=== PATIENT | female | born 1990 | race Caucasian/White ===

== ENCOUNTER → 2016-11-21 | Outpatient (CLI) | payer OTHER ==
--- NOTE | 2016-11-21 16:01 | US ---
EXAMINATION: Transvaginal pelvic ultrasound HISTORY: Hemorrhage, . Beta hCG 200. COMPARISON: None TECHNIQUE: Grayscale, color Doppler, and spectral Doppler images obtained transvaginally. FINDINGS: The uterus appears normal in size, contour, and echogenicity without a focal uterine mass. Endometrial stripe thickness is 3 mm. There is a moderate amount of free pelvic fluid. Small the andrade th in cyst. The left ovary appears normal in size, contour, and echogenicity and demonstrate normal color and sp ectral Doppler flow and containing several follicles. There is an irregular tubular shaped structure adjacent to the right ovary containing echogenic material and no significant internal color Doppler flow. No characteristic ring of fire noted. The adjacent right ovary appears normal in size and iman earance. IMPRESSION: 1. No intrauterine gestational sac identified, however not unexpected given the beta hCG of only 200 . An ectopic is not ruled out at this time. 2. Irregular echogenic tubular structure within the left adnexa, this could represent hemosalpinx or pyosalpinx. 3. Moderate free pelvic fluid.
== END ==
LOC: MW.CHOBGYN 10:21
PROVIDERS: ATTEND Nurse Practitioner Women's Health
DX: O20.9 Hemorrhage in early pregnancy, unspecified (principal); N93.8 Other specified abnormal uterine and vaginal bleeding
CPT/HCPCS: 36415; 76817; 76817-26; 83001; 83002; 84144; 84146; 84443; 84702; 84703; 85025

== ENCOUNTER → 2016-11-24 | Outpatient (CLI) | payer OTHER | LOC: MW.CHOBGYN 08:12 | PROVIDERS: ATTEND Nurse Practitioner Women's Health | DX: O20.0 Threatened abortion (principal) | CPT/HCPCS: 36415; 84702 ==

== ENCOUNTER 2016-11-27 11:18 | Emergency (ER) | payer OTHER ==
[~2016-11-27 11:18] MED LIST: METHOTREXATE 250 MG/10 ML IM SCH
--- NOTE | 2016-11-27 12:39 | US ---
EXAMINATION: Transvaginal and transabdominal pelvic ultrasound HISTORY: Cramping COMPARISON: 11/21/2016 TECHNIQUE: Grayscale, color Doppler, spectral Doppler images obtained transvaginally and transabdomi shira. FINDINGS: The uterus is normal in size, contour, and echogenicity without a focal uterine mass. Ther e is a small bone cyst. The endometrial stripe thickness is normal. No intrauterine gestational sac identified. Again noted is a prominent heterogeneous right ovary overall measuring 5.3 x 3.4 x 5.6 cm. This appe ars similar to the previous ultrasound demonstrating adequate internal color and spectral Doppler fl ow. The left ovary measures 3.0 x 4 x 4.5 cm demonstrating several small follicles and a dominant fo llicle measuring up to 2.2 cm. IMPRESSION: 1. Heterogeneously enlarged right ovary. Similar in appearance to the previous ultrasound. 2. Again no gestational sac is identified. Correlate with beta hCG. An ectopic is not rule d out. 3. Free pelvic fluid, however appears decreased from the prior ultrasound.
--- NOTE | 2016-11-27 12:51 | EDM.PDOC ---
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 Patient has been being monitored by her women's health practitioner who indicated she should come in for further evaluation secondary to increased lower abdominal pain.] Review of systems: As per history of present illness and below otherwise all systems reviewed and negative. Past medical history: As per history of present illness and as reviewed below otherwise noncontributory. Surgical history: As per history of present illness and as reviewed below otherwise noncontributory. Social history: No reported history of drug or alcohol abuse. Family history: As per history of present illness and as reviewed below otherwise noncontributory. Physical exam: HEENT: Atraumatic, normocephalic, pupils reactive, negative for conjunctival pallor or scleral icterus, mucous membranes moist, throat clear, neck supple, nontender, trachea midline. Lungs: Clear to auscultation, breath sounds equal bilaterally, chest nontender. Heart: S1S2, regular, negative for clicks, rubs, or JVD. Abdomen: Soft, nondistended, diffuse low pelvic pain right greater then left. Negative for masses or hepatosplenomegaly. Negative for costovertebral tenderness. Pelvis: Stable nontender. Genitourinary: Pelvic exam performed with small amount of bleeding noted coming from the OS. Rectal: Deferred. Extremities: Atraumatic, negative for cords or calf pain. Neurovascular unremarkable. Neuro: Awake, alert, oriented. Cranial nerves II through XII unremarkable. Cerebellum unremarkable. Motor and sensory unremarkable throughout. Exam nonfocal. Dr. Phipps consulted and presented to the ER for further evaluation of patient. Instructions given for methotrexate 50 mg per metered square to be dosed by pharmacy. Dr. Phipps discussed with patient risk benefits of monitoring and potential concern of a tubal . Signs and symptoms of increased pain and /or vaginal bleeding discussed with need to return emergently should this continue or worsen anyway. Consulted with pharmacy with standard dose being converted from the BSA with the dose route it down to 75 mg given in 2 injections. Medication being sent down by pharmacy specifically for this patient. Patient has followup appointment with Dr. Phipps at 1 PM on December 02 per Diagnostics: [First trimester bleeding workup] Therapeutics: [Methotrexate 50 mg per meter square] Impression: [Vaginal bleed] Plan: [All up with Dr. Phipps on December 02] Definitive disposition and diagnosis as appropriate pending reevaluation and review of above. Lower Abdomen Pain Score (Numeric/FACES): 6 - Related Data Allergies Allergy/AdvReac Type Severity Reaction Status Date / Time amoxicillin Allergy Rash Verified 11/27/16 11:28 chili Allergy Itching Uncoded 11/27/16 11:28 Home Meds: Home Meds . 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 Social & Family History - Family History Family Medical History: Noncontributory - Tobacco Use Smoking Status *Q: Former Smoker Years of Tobacco use: 12 Packs/Tins Daily: 0.5 Used Tobacco, but Quit: Yes Month Tobacco Last Used: 11/2016 - Caffeine Use Caffeine Use: Reports: Coffee Caffeine Use Comment: 3/4 cup - Alcohol Use Days Per Week of Alcohol Use: 2 Number of Drinks Per Day: 5 Total Drinks Per Week: 10 - Recreational Drug Use Recreational Drug Use: No ED ROS GENERAL - Review of Systems Review Of Systems: See Below (See history of present illness) ED EXAM, GENERAL - Physical Exam Exam: See Below (See history of present illness) Course - Vital Signs Last Recorded V/S: Last Vital Signs Temp 36.8 C 11/27/16 11:31 Pulse 94 11/27/16 13:29 Resp 18 11/27/16 13:29 BP 116/79 11/27/16 13:29 Pulse Ox 100 11/27/16 13:29 - Orders/Labs/Meds Labs: Laboratory Tests 11/27/16 11/27/16 11/27/16 Range/Units 11:33 11:33 11:54 WBC 8.73 (4.0-11.0) K/uL RBC 3.57 L (4.30-5.90) M/uL Hgb 11.6 L (12.0-16.0) g/dL Hct 35.0 L (36.0-46.0) % MCV 98.0 (80.0-98.0) fL MCH 32.5 H (27.0-32.0) pg MCHC 33.1 (31.0-37.0) g/dL RDW Std Deviation 45.3 (28.0-62.0) fl RDW Coeff of Bill 13 (11.0-15.0) % Plt Count 254 (150-400) K/uL MPV 10.10 (7.40-12.00) fL Neut % (Auto) 77.6 (48.0-80.0) % Lymph % (Auto) 13.6 L (16.0-40.0) % [place] % (Auto) 8.2 (0.0-15.0) % Eos % (Auto) 0.5 (0.0-7.0) % Baso % (Auto) 0.1 (0.0-1.5) % Neut # (Auto) 6.8 H (1.4-5.7) K/uL Lymph # (Auto) 1.2 (0.6-2.4) K/uL [place] # (Auto) 0.7 (0.0-0.8) K/uL Eos # (Auto) 0.0 (0.0-0.7) K/uL Baso # (Auto) 0.0 (0.0-0.1) K/uL Nucleated RBC % 0.0 /100WBC Nucleated RBCs # 0 K/uL HCG, Quant mIU/mL Urine Color YELLOW Urine Appearance CLEAR Urine pH 6.5 (5.0-8.0) Ur Specific [place] 1.015 (1.001-1.035) Urine Protein NEGATIVE (NEGATIVE) mg/dL Urine Glucose (UA) NEGATIVE (NEGATIVE) mg/dL Urine Ketones NEGATIVE (NEGATIVE) mg/dL Urine Occult Blood LARGE H (NEGATIVE) Urine Nitrite NEGATIVE (NEGATIVE) Urine Bilirubin NEGATIVE (NEGATIVE) Urine Urobilinogen 0.2 (<2.0) EU/dL Ur Leukocyte Esterase NEGATIVE (NEGATIVE) Urine RBC 7-9 (0-2/HPF) Urine WBC 0-1 (0-5/HPF) Ur Epithelial Cells RARE (NONE-FEW) Urine Bacteria RARE (NEGATIVE) Urine Mucus LIGHT (NONE-MOD) Urine HCG, Qual POSITIVE (NEGATIVE) Blood Type 11/27/16 11/27/16 Range/Units 11:54 11:54 WBC (4.0-11.0) K/uL RBC (4.30-5.90) M/uL Hgb (12.0-16.0) g/dL Hct (36.0-46.0) % MCV (80.0-98.0) fL MCH (27.0-32.0) pg MCHC (31.0-37.0) g/dL RDW Std Deviation (28.0-62.0) fl RDW Coeff of Bill (11.0-15.0) % Plt Count (150-400) K/uL MPV (7.40-12.00) fL Neut % (Auto) (48.0-80.0) % Lymph % (Auto) (16.0-40.0) % [place] % (Auto) (0.0-15.0) % Eos % (Auto) (0.0-7.0) % Baso % (Auto) (0.0-1.5) % Neut # (Auto) (1.4-5.7) K/uL Lymph # (Auto) (0.6-2.4) K/uL [place] # (Auto) (0.0-0.8) K/uL Eos # (Auto) (0.0-0.7) K/uL Baso # (Auto) (0.0-0.1) K/uL Nucleated RBC % /100WBC Nucleated RBCs # K/uL HCG, Quant 154.4 mIU/mL Urine Color Urine Appearance Urine pH (5.0-8.0) Ur Specific [place] (1.001-1.035) Urine Protein (NEGATIVE) mg/dL Urine Glucose (UA) (NEGATIVE) mg/dL Urine Ketones (NEGATIVE) mg/dL Urine Occult Blood (NEGATIVE) Urine Nitrite (NEGATIVE) Urine Bilirubin (NEGATIVE) Urine Urobilinogen (<2.0) EU/dL Ur Leukocyte Esterase (NEGATIVE) Urine RBC (0-2/HPF) Urine WBC (0-5/HPF) Ur Epithelial Cells (NONE-FEW) Urine Bacteria (NEGATIVE) Urine Mucus (NONE-MOD) Urine HCG, Qual (NEGATIVE) Blood Type A POSITIVE Departure - Departure Time of Disposition: 14:12 Disposition: Home, Self-Care 01 Condition: good Clinical Impression: Vaginal bleeding - Discharge Information Forms: ED Department Discharge Additional Instructions: The following information is given to patients seen in the emergency department who are being discharged to home. This information is to outline your options for follow-up care. We provide all patients seen in our emergency department with a follow-up referral. The need for follow-up, as well as the timing and circumstances, are variable depending upon the specifics of your emergency department visit. If you don't have a primary care physician on staff, we will provide you with a referral. We always advise you to contact your personal physician following an emergency department visit to inform them of the circumstance of the visit and for follow-up with them and/or the need for any referrals to a consulting specialist. The emergency department will also refer you to a specialist when appropriate. This referral assures that you have the opportunity for follow-up care with a specialist. All of these measure are taken in an effort to provide you with optimal care, which includes your follow-up. Under all circumstances we always encourage you to contact your private physician who remains a resource for coordinating your care. When calling for follow-up care, please make the office aware that this follow-up is from your recent emergency room visit. If for any reason you are refused follow-up, please contact the [facility] Emergency Department at and asked to speak to the emergency department charge nurse. Followup with Dr. Phipps on December 02 Return to ER as needed as discussed
[2016-11-27 14:21] VITALS: BP 120/68
[2016-11-27] MEDS ORDERED: Methotrexate PF 50 MG/2 ML SDV IM ONE (14:38)
--- NOTE | 2016-11-28 02:43 | CONS ---
DATE OF CONSULTATION: DATE OF : 1990 PRIMARY CARE PHYSICIAN: None PCP Ms. Parkinson is a 26-year-old patient, nulliparous. She was originally seen by [facility] CATHERINE RICHARDS /[phone]
== END 2016-11-27 15:08 | disposition home or self-care (01) ==
LOC: MW.ED 11:18
DX: O46.91 Antepartum hemorrhage, unspecified, first trimester (principal); R10.2 Pelvic and perineal pain; Z3A.01 Less than 8 weeks gestation of pregnancy; Z88.0 Allergy status to penicillin; Z87.891 Personal history of nicotine dependence
CPT/HCPCS: 36415; 76801; 81001; 81025; 84702; 85025; 86900; 86901; 96372; 99283; J9260

== ENCOUNTER 2016-11-28 17:07 | Day surgery (SDC) | payer OTHER ==
[2016-11-28] MEDS ORDERED: Ondansetron 4 MG/2 ML SDV IVPUSH ONE (17:25)
[2016-11-28] MEDS ORDERED: HYDROmorphone 1 MG/ML Syringe IVPUSH ONE (17:25)
[2016-11-28] MEDS ORDERED: Sodium Chloride 0.9% 1,000 ML IV ONE (17:25)
--- NOTE | 2016-11-28 17:37 | EDM.PDOC ---
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 Past medical history: As per history of present illness and as reviewed below otherwise noncontributory. Surgical history: As per history of present illness and as reviewed below otherwise noncontributory. Social history: No reported history of drug or alcohol abuse. Family history: As per history of present illness and as reviewed below otherwise noncontributory. Physical exam: HEENT: Atraumatic, normocephalic, pupils reactive, negative for conjunctival pallor or scleral icterus, mucous membranes moist, throat clear, neck supple, nontender, trachea midline. Lungs: Clear to auscultation, breath sounds equal bilaterally, chest nontender. Heart: S1S2, regular, negative for clicks, rubs, or JVD. Abdomen: Rigid tender with rebound and guarding. Negative for masses or hepatosplenomegaly. Negative for costovertebral tenderness. Pelvis: Stable nontender. Genitourinary: Deferred. Rectal: Deferred. Extremities: Atraumatic, negative for cords or calf pain. Neurovascular unremarkable. Neuro: Awake, alert, oriented. Cranial nerves II through XII unremarkable. Cerebellum unremarkable. Motor and sensory unremarkable throughout. Exam nonfocal. Diagnostics: CBC CMP quantitative data PT INR type and screen Therapeutics: IV x2 normal saline 1 L bolus Dilaudid 1 mg IV Zofran 4 mg IV Impression: #1 acute abdominal pain with history of present tubal Definitive disposition and diagnosis as appropriate pending reevaluation and review of above. - Related Data Allergies Allergy/AdvReac Type Severity Reaction Status Date / Time amoxicillin Allergy Rash Verified 11/27/16 11:28 chili Allergy Itching Uncoded 11/27/16 11:28 Home Meds: Home Meds . 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 ED EXAM, GENERAL - Physical Exam Exam: See Below (See dictation) Course - Orders/Labs/Meds Orders: Active Orders 24 hr Category Date Time Status TYPE AND SCREEN [BBK] Stat Lab 11/28/16 15:20 Received Sodium Chloride 0.9% [Normal Saline] 1,000 ml Med 11/28/16 17:25 Active IV .Bolus Medication Orders Sodium Chloride (Normal Saline) 1,000 mls @ 999 mls/hr IV .Bolus ONE Stop: 11/28/16 18:25 Last Admin: 11/28/16 17:39 Dose: 999 mls/hr Labs: Laboratory Tests 11/28/16 11/28/16 11/28/16 Range/Units 15:20 15:20 15:20 WBC 9.65 (4.0-11.0) K/uL RBC 3.61 L (4.30-5.90) M/uL Hgb 11.8 L (12.0-16.0) g/dL Hct 35.5 L (36.0-46.0) % MCV 98.3 H (80.0-98.0) fL MCH 32.7 H (27.0-32.0) pg MCHC 33.2 (31.0-37.0) g/dL RDW Std Deviation 44.8 (28.0-62.0) fl RDW Coeff of Bill 13 (11.0-15.0) % Plt Count 291 (150-400) K/uL MPV 10.40 (7.40-12.00) fL Neut % (Auto) 67.9 (48.0-80.0) % Lymph % (Auto) 22.1 (16.0-40.0) % [place] % (Auto) 9.1 (0.0-15.0) % Eos % (Auto) 0.7 (0.0-7.0) % Baso % (Auto) 0.2 (0.0-1.5) % Neut # (Auto) 6.6 H (1.4-5.7) K/uL Lymph # (Auto) 2.1 (0.6-2.4) K/uL [place] # (Auto) 0.9 H (0.0-0.8) K/uL Eos # (Auto) 0.1 (0.0-0.7) K/uL Baso # (Auto) 0.0 (0.0-0.1) K/uL Nucleated RBC % 0.0 /100WBC Nucleated RBCs # 0 K/uL Sodium 140 (136-146) mmol/L Potassium 3.8 (3.5-5.1) mmol/L Chloride 105 (98-110) mmol/L Carbon Dioxide 23 (21-31) mmol/L BUN 15 (6.0-23.0) mg/dL Creatinine 0.8 (0.6-1.5) mg/dL Est Cr Clr Drug Dosing TNP Estimated GFR (MDRD) > 60.0 ml/min Glucose 97 (60-110) mg/dL Calcium 9.9 (8.8-10.8) mg/dL Total Bilirubin 0.5 (0.1-1.5) mg/dL AST 16 (5-40) IU/L ALT 14 (8-54) IU/L Alkaline Phosphatase 76 (40-150) Total Protein 8.7 H (6.0-8.0) g/dL Albumin 5.1 H (3.5-5.0) g/dL Globulin 3.6 H (2.0-3.5) g/dL Albumin/Globulin Ratio 1.4 (1.3-2.8) HCG, Quant 195.7 mIU/mL Meds: Medications Generic Name Dose Route Start Last Admin Trade Name Freq PRN Reason Stop Dose Admin Sodium Chloride 1,000 mls @ 999 mls/hr 11/28/16 17:25 11/28/16 17:39 Normal Saline IV 11/28/16 18:25 999 mls/hr .Bolus ONE Administration Discontinued Medications Generic Name Dose Route Start Last Admin Trade Name Freq PRN Reason Stop Dose Admin Hydromorphone HCl 1 mg 11/28/16 17:25 11/28/16 17:39 Dilaudid IVPUSH 11/28/16 17:26 1 mg ONETIME ONE Administration Ondansetron HCl 4 mg 11/28/16 17:25 11/28/16 17:40 Zofran IVPUSH 11/28/16 17:26 4 mg ONETIME ONE Administration Departure - Departure Time of Disposition: 18:17 Disposition: DC/Tfer to Other 70 Condition: serious Clinical Impression: Abdominal pain, Tubal ectopic - Discharge Information Referrals: PCP,None [Primary Care Provider] - Forms: ED Department Discharge - My Orders Last 24 Hours: My Active Orders 11/28/16 15:20 TYPE AND SCREEN [BBK] Stat 11/28/16 17:25 Sodium Chloride 0.9% [Normal Saline] 1,000 ml IV .Bolus - Assessment/Plan Last 24 Hours: My Active Orders 11/28/16 15:20 TYPE AND SCREEN [BBK] Stat 11/28/16 17:25 Sodium Chloride 0.9% [Normal Saline] 1,000 ml IV .Bolus
[2016-11-28 17:44] LABS: CHLORIDE,CL 105 mmol/L (98-110); SODIUM,NA 140 mmol/L (136-146)
[2016-11-28] MEDS ORDERED: Ondansetron 4 MG/2 ML SDV ONE (18:21)
[2016-11-28] MEDS ORDERED: fentaNYL 250 MCG/5 ML SDV ONE (18:21)
[2016-11-28] MEDS ORDERED: HYDROmorphone 2 MG/ML Syringe ONE (18:21)
[2016-11-28] MEDS ORDERED: Succinylcholine/Normal Saline 200 MG/10 ML Syringe ONE (18:21)
[2016-11-28] MEDS ORDERED: Dexamethasone 4 MG/ML 5 ML MDV ONE (18:21)
[2016-11-28] MEDS ORDERED: Midazolam 1 MG/ML 2 ML SDV ONE (18:21)
[2016-11-28] MEDS ORDERED: Propofol 200 MG/20 ML SDV ONE (18:21)
[2016-11-28] MEDS ORDERED: Rocuronium 10 MG/ML 10 ML Syringe ONE (18:21)
[2016-11-28] MEDS ORDERED: Lidocaine 2% 5 ML SDV ONE (18:23)
--- NOTE | 2016-11-28 19:08 | PCM.PREANE ---
Preanesthetic Assessment - Anesthesia/Transfusion/Family Hx Anesthesia History: Prior Anesthesia Without Reaction Family History of Anesthesia Reaction: Yes - Review of Systems Other: Reports: None - Physical Assessment NPO Status Date: 11/28/16 NPO Status Time: 16:00 O2 Sat by Pulse Oximetry: 100 Respiratory Rate: 16 Vital Signs: Last Vital Signs Temp 36.6 C 11/28/16 17:10 Pulse 92 11/28/16 17:10 Resp 16 11/28/16 17:10 BP 122/83 11/28/16 17:10 Pulse Ox 100 11/28/16 17:10 Height: 5 ft 4.17 in Weight: 53.977 kg ASA Class: 2E Mental Status: Alert & Oriented x3 Airway Class: Mallampati = 1 Dentition: Reports: Normal Dentition Thyro-Mental Finger Breadths: 3 Mouth Opening Finger Breadths: 3 ROM/Head Extension: Full - Lab Values: Laboratory Last Values WBC 9.65 K/uL (4.0-11.0) 11/28/16 15:20 RBC 3.61 M/uL (4.30-5.90) L 11/28/16 15:20 Hgb 11.8 g/dL (12.0-16.0) L 11/28/16 15:20 Hct 35.5 % (36.0-46.0) L 11/28/16 15:20 MCV 98.3 fL (80.0-98.0) H 11/28/16 15:20 MCH 32.7 pg (27.0-32.0) H 11/28/16 15:20 MCHC 33.2 g/dL (31.0-37.0) 11/28/16 15:20 RDW Std Deviation 44.8 fl (28.0-62.0) 11/28/16 15:20 RDW Coeff of Bill 13 % (11.0-15.0) 11/28/16 15:20 Plt Count 291 K/uL (150-400) 11/28/16 15:20 MPV 10.40 fL (7.40-12.00) 11/28/16 15:20 Neut % (Auto) 67.9 % (48.0-80.0) 11/28/16 15:20 Lymph % (Auto) 22.1 % (16.0-40.0) 11/28/16 15:20 [place] % (Auto) 9.1 % (0.0-15.0) 11/28/16 15:20 Eos % (Auto) 0.7 % (0.0-7.0) 11/28/16 15:20 Baso % (Auto) 0.2 % (0.0-1.5) 11/28/16 15:20 Neut # (Auto) 6.6 K/uL (1.4-5.7) H 11/28/16 15:20 Lymph # (Auto) 2.1 K/uL (0.6-2.4) 11/28/16 15:20 [place] # (Auto) 0.9 K/uL (0.0-0.8) H 11/28/16 15:20 Eos # (Auto) 0.1 K/uL (0.0-0.7) 11/28/16 15:20 Baso # (Auto) 0.0 K/uL (0.0-0.1) 11/28/16 15:20 Nucleated RBC % 0.0 /100WBC 11/28/16 15:20 Nucleated RBCs # 0 K/uL 11/28/16 15:20 Sodium 140 mmol/L (136-146) 11/28/16 15:20 Potassium 3.8 mmol/L (3.5-5.1) 11/28/16 15:20 Chloride 105 mmol/L (98-110) 11/28/16 15:20 Carbon Dioxide 23 mmol/L (21-31) 11/28/16 15:20 BUN 15 mg/dL (6.0-23.0) 11/28/16 15:20 Creatinine 0.8 mg/dL (0.6-1.5) 11/28/16 15:20 Est Cr Clr Drug Dosing TNP 11/28/16 15:20 Estimated GFR (MDRD) > 60.0 ml/min 11/28/16 15:20 Glucose 97 mg/dL (60-110) 11/28/16 15:20 Calcium 9.9 mg/dL (8.8-10.8) 11/28/16 15:20 Total Bilirubin 0.5 mg/dL (0.1-1.5) 11/28/16 15:20 AST 16 IU/L (5-40) 11/28/16 15:20 ALT 14 IU/L (8-54) 11/28/16 15:20 Alkaline Phosphatase 76 (40-150) 11/28/16 15:20 Total Protein 8.7 g/dL (6.0-8.0) H 11/28/16 15:20 Albumin 5.1 g/dL (3.5-5.0) H 11/28/16 15:20 Globulin 3.6 g/dL (2.0-3.5) H 11/28/16 15:20 Albumin/Globulin Ratio 1.4 (1.3-2.8) 11/28/16 15:20 HCG, Quant 195.7 mIU/mL 11/28/16 15:20 - Allergies Allergies/Adverse Reactions: Allergies Allergy/AdvReac Type Severity Reaction Status Date / Time amoxicillin Allergy Rash Verified 11/28/16 18:31 chili Allergy Itching Uncoded 11/28/16 18:31 - Blood Blood Available: Yes Product(s) Available: PRBC - Acknowledgements Anesthesia Type Planned: General Anesthesia (RSI ETT) Pt an Appropriate Candidate for the Planned Anesthesia: Yes Alternatives and Risks of Anesthesia Discussed w Pt/Guardian: Yes Pt/Guardian Understands and Agrees with Anesthesia Plan: Yes 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 [No Known Home Meds] 11/08/14 [History] - CURRENT (IN HOUSE) MEDS Current Meds: Current Medications Discontinued Medications Dexamethasone (Dexamethasone) Confirm Administered Dose 20 mg .ROUTE .STK-MED ONE Stop: 11/28/16 18:22 Fentanyl (Sublimaze) Confirm Administered Dose 250 mcg .ROUTE .STK-MED ONE Stop: 11/28/16 18:22 Hydromorphone HCl (Dilaudid) 1 mg IVPUSH ONETIME ONE Stop: 11/28/16 17:26 Last Admin: 11/28/16 17:39 Dose: 1 mg Hydromorphone HCl (Dilaudid) Confirm Administered Dose 2 mg .ROUTE .STK-MED ONE Stop: 11/28/16 18:22 Sodium Chloride (Normal Saline) 1,000 mls @ 999 mls/hr IV .Bolus ONE Stop: 11/28/16 18:25 Last Admin: 11/28/16 17:39 Dose: 999 mls/hr Lidocaine (Xylocaine-Mpf 2%) Confirm Administered Dose 5 ml .ROUTE .STK-MED ONE Stop: 11/28/16 18:24 Midazolam HCl (Versed 1 Mg/Ml) Confirm Administered Dose 2 mg .ROUTE .STK-MED ONE Stop: 11/28/16 18:22 Ondansetron HCl (Zofran) 4 mg IVPUSH ONETIME ONE Stop: 11/28/16 17:26 Last Admin: 11/28/16 17:40 Dose: 4 mg Ondansetron HCl (Zofran) Confirm Administered Dose 4 mg .ROUTE .STK-MED ONE Stop: 11/28/16 18:22 Propofol (Diprivan 20 Ml) Confirm Administered Dose 200 mg .ROUTE .STK-MED ONE Stop: 11/28/16 18:22 Rocuronium [place] (Zemuron) Confirm Administered Dose 100 mg .ROUTE .STK-MED ONE Stop: 11/28/16 18:22 Succinylcholine Chloride (Succinylcholine In Ns Pf) Confirm Administered Dose 200 mg .ROUTE .STK-MED ONE Stop: 11/28/16 18:22
[2016-11-28] MEDS ORDERED: Neostigmine Methylsulfate 1 MG/ML 5 ML Syringe ONE (19:24)
[2016-11-28] MEDS ORDERED: Octyl 2-Cyanoacrylate 1 Tube ONE (19:44)
[2016-11-28] MEDS ORDERED: Ondansetron 4 MG/2 ML SDV IVPUSH PRN (19:53)
[2016-11-28] MEDS ORDERED: Morphine 2 MG/ML Syringe IVPUSH PRN (19:53)
[2016-11-28] MEDS ORDERED: Morphine 4 MG/ML Syringe IVPUSH PRN (19:53)
[2016-11-28] MEDS ORDERED: Acetaminophen/oxyCODONE 325-5 MG Tab PO PRN ×2 (19:53)
[2016-11-28] MEDS ORDERED: Ketorolac 30 MG/ML SDV IVPUSH ONE (19:53)
[2016-11-28] MEDS ORDERED: Promethazine 25 MG/ML SDV IM PRN (19:53)
[2016-11-28] MEDS ORDERED: Ketorolac 30 MG/ML SDV IVPUSH PRN (19:53)
--- NOTE | 2016-11-28 19:57 | PCM.OPNOTE ---
- General Post-Op/Procedure Note Date of Surgery/Procedure: 11/28/16 Operative Procedure(s): Dignostic Laparascopy Post-Op Diagnosis: Same Anesthesia Technique: General ET tube Primary Surgeon: Dominic Phipps EBL in mLs: 150 Complications: None Condition: Fair
--- NOTE | 2016-11-28 19:58 | PCM.DCSUM1 ---
Discharge Summary - Discharge Data Discharge Date: 11/28/16 Discharge Disposition: Home, Self-Care 01 Condition: Fair - Patient Summary/Data Operative Procedure(s) Performed: Dignostic Laparascopy - Patient Instructions Diet: Usual Diet as Tolerated Activity: As Tolerated Driving: Do Not Drive Showering/Bathing: May Shower Wound/Incision Care: Keep Operative Site/Wound Site Clean and Dry Notify Provider of: Fever, Increased Pain, Swelling and Redness, Nausea and/or Vomiting - Discharge Plan Home Medications: Home Meds . [No Known Home Meds] 11/08/14 [History] Forms: ED Department Discharge Referrals: PCP,None [Primary Care Provider] - - General Info Date of Service: 11/28/16 Functional Status: Reports: pain controlled - Review of Systems General: Reports: No Symptoms HEENT: Reports: no symptoms Pulmonary: Reports: no symptoms Cardiovascular: Reports: No Symptoms Gastrointestinal: Reports: No symptoms Genitourinary: Reports: no symptoms Musculoskeletal: Reports: no symptoms Skin: Reports: no symptoms Neurological: Reports: No Symptoms Psychiatric: Reports: no symptoms - Patient Data Vitals - Most Recent: Last Vital Signs Temp 36.6 C 11/28/16 17:10 Pulse 92 11/28/16 17:10 Resp 16 11/28/16 19:06 BP 122/83 11/28/16 17:10 Pulse Ox 100 11/28/16 19:06 Weight - Most Recent: 53.977 kg Lab Results - Last 24 hrs: Laboratory Results - last 24 hr 11/28/16 11/28/16 11/28/16 Range/Units 15:20 15:20 15:20 WBC 9.65 (4.0-11.0) K/uL RBC 3.61 L (4.30-5.90) M/uL Hgb 11.8 L (12.0-16.0) g/dL Hct 35.5 L (36.0-46.0) % MCV 98.3 H (80.0-98.0) fL MCH 32.7 H (27.0-32.0) pg MCHC 33.2 (31.0-37.0) g/dL RDW Std Deviation 44.8 (28.0-62.0) fl RDW Coeff of Bill 13 (11.0-15.0) % Plt Count 291 (150-400) K/uL MPV 10.40 (7.40-12.00) fL Neut % (Auto) 67.9 (48.0-80.0) % Lymph % (Auto) 22.1 (16.0-40.0) % [place] % (Auto) 9.1 (0.0-15.0) % Eos % (Auto) 0.7 (0.0-7.0) % Baso % (Auto) 0.2 (0.0-1.5) % Neut # (Auto) 6.6 H (1.4-5.7) K/uL Lymph # (Auto) 2.1 (0.6-2.4) K/uL [place] # (Auto) 0.9 H (0.0-0.8) K/uL Eos # (Auto) 0.1 (0.0-0.7) K/uL Baso # (Auto) 0.0 (0.0-0.1) K/uL Nucleated RBC % 0.0 /100WBC Nucleated RBCs # 0 K/uL Sodium 140 (136-146) mmol/L Potassium 3.8 (3.5-5.1) mmol/L Chloride 105 (98-110) mmol/L Carbon Dioxide 23 (21-31) mmol/L BUN 15 (6.0-23.0) mg/dL Creatinine 0.8 (0.6-1.5) mg/dL Est Cr Clr Drug Dosing TNP Estimated GFR (MDRD) > 60.0 ml/min Glucose 97 (60-110) mg/dL Calcium 9.9 (8.8-10.8) mg/dL Total Bilirubin 0.5 (0.1-1.5) mg/dL AST 16 (5-40) IU/L ALT 14 (8-54) IU/L Alkaline Phosphatase 76 (40-150) Total Protein 8.7 H (6.0-8.0) g/dL Albumin 5.1 H (3.5-5.0) g/dL Globulin 3.6 H (2.0-3.5) g/dL Albumin/Globulin Ratio 1.4 (1.3-2.8) HCG, Quant 195.7 mIU/mL Blood Type Antibody Screen 11/28/16 Range/Units 15:20 WBC (4.0-11.0) K/uL RBC (4.30-5.90) M/uL Hgb (12.0-16.0) g/dL Hct (36.0-46.0) % MCV (80.0-98.0) fL MCH (27.0-32.0) pg MCHC (31.0-37.0) g/dL RDW Std Deviation (28.0-62.0) fl RDW Coeff of Bill (11.0-15.0) % Plt Count (150-400) K/uL MPV (7.40-12.00) fL Neut % (Auto) (48.0-80.0) % Lymph % (Auto) (16.0-40.0) % [place] % (Auto) (0.0-15.0) % Eos % (Auto) (0.0-7.0) % Baso % (Auto) (0.0-1.5) % Neut # (Auto) (1.4-5.7) K/uL Lymph # (Auto) (0.6-2.4) K/uL [place] # (Auto) (0.0-0.8) K/uL Eos # (Auto) (0.0-0.7) K/uL Baso # (Auto) (0.0-0.1) K/uL Nucleated RBC % /100WBC Nucleated RBCs # K/uL Sodium (136-146) mmol/L Potassium (3.5-5.1) mmol/L Chloride (98-110) mmol/L Carbon Dioxide (21-31) mmol/L BUN (6.0-23.0) mg/dL Creatinine (0.6-1.5) mg/dL Est Cr Clr Drug Dosing Estimated GFR (MDRD) ml/min Glucose (60-110) mg/dL Calcium (8.8-10.8) mg/dL Total Bilirubin (0.1-1.5) mg/dL AST (5-40) IU/L ALT (8-54) IU/L Alkaline Phosphatase (40-150) Total Protein (6.0-8.0) g/dL Albumin (3.5-5.0) g/dL Globulin (2.0-3.5) g/dL Albumin/Globulin Ratio (1.3-2.8) HCG, Quant mIU/mL Blood Type A POSITIVE Antibody Screen NEGATIVE Med Orders - Current: Current Medications Ketorolac Tromethamine (Toradol) 30 mg IVPUSH ONETIME ONE Stop: 11/28/16 19:54 Ketorolac Tromethamine (Toradol) 30 mg IVPUSH Q6H PRN PRN Reason: Pain (severe 7-10) Stop: 12/03/16 19:53 Morphine Sulfate (Morphine) 2 mg IVPUSH Q2H PRN PRN Reason: Pain (severe 7-10) Morphine Sulfate (Morphine) 4 mg IVPUSH Q2H PRN PRN Reason: Pain (severe 7-10) Ondansetron HCl (Zofran) 4 mg IVPUSH Q6H PRN PRN Reason: Nausea/Vomiting Oxycodone/Acetaminophen (Percocet 325-5 Mg) 1 tab PO Q4H PRN PRN Reason: Pain (moderate 4-6) Oxycodone/Acetaminophen (Percocet 325-5 Mg) 2 tab PO Q4H PRN PRN Reason: Pain (moderate 4-6) Promethazine HCl (Phenergan) 25 mg IM Q6H PRN PRN Reason: Nausea/Vomiting Discontinued Medications Dexamethasone (Dexamethasone) Confirm Administered Dose 20 mg .ROUTE .STK-MED ONE Stop: 11/28/16 18:22 Fentanyl (Sublimaze) Confirm Administered Dose 250 mcg .ROUTE .STK-MED ONE Stop: 11/28/16 18:22 Glycopyrrolate () Confirm Administered Dose 1 mg .ROUTE .STK-MED ONE Stop: 11/28/16 19:25 Hydromorphone HCl (Dilaudid) 1 mg IVPUSH ONETIME ONE Stop: 11/28/16 17:26 Last Admin: 11/28/16 17:39 Dose: 1 mg Hydromorphone HCl (Dilaudid) Confirm Administered Dose 2 mg .ROUTE .STK-MED ONE Stop: 11/28/16 18:22 Sodium Chloride (Normal Saline) 1,000 mls @ 999 mls/hr IV .Bolus ONE Stop: 11/28/16 18:25 Last Admin: 11/28/16 17:39 Dose: 999 mls/hr Lidocaine (Xylocaine-Mpf 2%) Confirm Administered Dose 5 ml .ROUTE .STK-MED ONE Stop: 11/28/16 18:24 Midazolam HCl (Versed 1 Mg/Ml) Confirm Administered Dose 2 mg .ROUTE .STK-MED ONE Stop: 11/28/16 18:22 Neostigmine Methylsulfate (Neostigmine) Confirm Administered Dose 5 mg .ROUTE .STK-MED ONE Stop: 11/28/16 19:25 Octyl Cyanoacrylate (Dermabond Advance) Confirm Administered Dose 1 applic .ROUTE .STK-MED ONE Stop: 11/28/16 19:45 Ondansetron HCl (Zofran) 4 mg IVPUSH ONETIME ONE Stop: 11/28/16 17:26 Last Admin: 11/28/16 17:40 Dose: 4 mg Ondansetron HCl (Zofran) Confirm Administered Dose 4 mg .ROUTE .STK-MED ONE Stop: 11/28/16 18:22 Propofol (Diprivan 20 Ml) Confirm Administered Dose 200 mg .ROUTE .STK-MED ONE Stop: 11/28/16 18:22 Rocuronium [place] (Zemuron) Confirm Administered Dose 100 mg .ROUTE .STK-MED ONE Stop: 11/28/16 18:22 Succinylcholine Chloride (Succinylcholine In Ns Pf) Confirm Administered Dose 200 mg .ROUTE .STK-MED ONE Stop: 11/28/16 18:22 - Exam General: Reports: alert, oriented HEENT: Reports: Pupils equal, Pupils reactive, EOMI, Mucous membr. moist/pink Neck: Reports: supple Lungs: Reports: Clear to auscultation, Normal respiratory effort Cardiovascular: Reports: Regular Rate, Regular Rhythm Abdomen: Reports: bowel sounds present, soft, no tenderness, no distension (Female) Exam: Normal External Exam, Normal Speculum Exam, Normal Bimanual Exam Rectal (Female) Exam: Normal Exam, Normal Rectal Tone Back Exam: Reports: Normal Inspection, Full Range of Motion Extremities: Reports: no edema, normal pulses Skin: Reports: warm, dry, intact Wound/Incisions: Reports: healing well Neurological: Reports: no new focal deficit Psy/Mental Status: Reports: alert, normal affect, normal mood *Q Meaningful Use (DIS) - VTE *Q VTE Criteria *Q: - Stroke *Q Stroke Criteria *Q: - AMI *Q AMI Criteria *Q:
--- NOTE | 2016-11-28 20:24 | PCM.POSTAN ---
POST ANESTHESIA ASSESSMENT - MENTAL STATUS Mental Status: alert, oriented - RESPIRATORY Respiratory Status: respiratory rate WNL, airway patent, O2 saturation stable - CARDIOVASCULAR CV Status: pulse rate WNL, blood pressure stable - GASTROINTESTINAL GI Status: no symptoms - PAIN Pain Score: 0 - POST OP HYDRATION Hydration Status: adequate & stable
--- NOTE | 2016-11-28 21:08 | OR ---
SURGEON: Dominic Phipps MD DATE OF PROCEDURE: PREOPERATIVE DIAGNOSIS: Tubal . POSTOPERATIVE DIAGNOSES: Rupture of right tubal , left ovarian cyst. OPERATION PERFORMED: Multiple puncture diagnostic laparoscopy, peritoneal lavage, right salpingectomy and aspiration of left ovarian cyst. PATIENT CARE TECHNICIAN INSTRUCTOR: DEXTER cano. ANESTHESIA: General endotracheal intubation, Reta Kendrick. ESTIMATED BLOOD LOSS: Including the blood in the peritoneal cavity is about 150 mL. COMPLICATION: None. FINDING: The patient has had hemoperitoneum. She had a rupture of right tubal with a total damage of the right tubes, the left tube is appearing normal and she had a 5 cm left ovarian cyst aspirated. INDICATION: The patient did have pelvic pain and abdominal pain with tenderness and rebound tenderness and her beta-hCG level is 200. She did not respond to methotrexate and the patient continued to have pain and had multiple visits to the ER. Decision was made to do a diagnostic laparoscopy. NARRATIVE: The patient was brought to the OR, properly identified, and after adequate level of general anesthesia, the patient was placed in lithotomy position with an access to the abdomen and the vagina. The patient was prepped and draped in sterile fashion as usual. A straight catheter was used to empty the bladder and Hulka manipulator was placed in the uterus for manipulation. Then, the operation shifted abdominally. Stab wound done beneath the umbilicus. The Veress needle was placed in the peritoneal cavity and that cavity and then using 5 mm scope with a 5 mm trocar utilizing the Visiport technique, the peritoneal cavity was entered. Hemoperitoneum was recognized immediately. The 10-12 trocar was placed in the left iliac fossa and 5-mm trocar in the right iliac fossa under direct vision. The operation started by doing peritoneal lavage and evacuating all the blood and blood clot from the pelvis. The right tube was totally damaged and it is not salvageable, so using the Harmonic scalpel, right salpingectomy is performed and the tube was placed in an Endobag and removed later on. Then attention was paid to the left ovary and aspiration of the cyst is done and decompression of the cyst is done completely, then thorough peritoneal lavage was done to the pelvis. Inspection of the entire operative field shows no oozing, no bleeding, and this time we decided to end the procedure. The instrument was retrieved from the abdomen and the vagina, and the multiple laparoscopic incisions closed in layers. Instrument and sponge count were correct. The patient tolerated the procedure well and went to recovery room in stable general condition. CATHERINE RICHARDS /[id number]
--- NOTE | 2016-11-28 21:23 | PCM48HPAN ---
Post Anesthesia Note - EVALUATION WITHIN 48HRS OF ANESTHETIC Vital Signs in Normal Range: Yes Patient Participated in Evaluation: Yes Respiratory Function Stable: Yes Airway Patent: Yes Cardiovascular Function Stable: Yes Hydration Status Stable: Yes Pain Control Satisfactory: Yes Nausea and Vomiting Control Satisfactory: No (nausea and vomiting. Order for phenergan IM) Mental Status Recovered: Yes
[2016-11-29 01:54] VITALS: BP 109/63
== END 2016-11-29 01:15 | disposition home or self-care (01) ==
LOC: MW.ED 17:07 → MW.SDS 18:30
PROVIDERS: ATTEND Obstetrics & Gynecology
PROC: 10T24ZZ Resection of Products of Conception, Ectopic, Percutaneous Endoscopic Approach (ICD-10-PCS; principal; 2016-11-28)
PROC: 0UT54ZZ Resection of Right Fallopian Tube, Percutaneous Endoscopic Approach (ICD-10-PCS; 2016-11-28)
PROC: 0U914ZZ Drainage of Left Ovary, Percutaneous Endoscopic Approach (ICD-10-PCS; 2016-11-28)
DX: O00.10 Tubal pregnancy without intrauterine pregnancy (principal); N83.202 Unspecified ovarian cyst, left side; Z87.891 Personal history of nicotine dependence; Z98.890 Other specified postprocedural states
CPT/HCPCS: 36415; 49322; 59151; 80053; 84702; 85025; 86850; 86900; 86901; 88305; 96361; 96374; 96375; 99285; A9270; J1100; J1170; J2250; J2405; J2550; J3010; J7040; 00840; J2704

== ENCOUNTER 2017-10-14 15:14 | Emergency (ER) | payer OTHER ==
[2017-10-14 15:35] VITALS: BP 117/66
[2017-10-14] MEDS ORDERED: methylPREDNISolone Sodium Succinate 125 MG/2 ML SDV IVPUSH ONE (15:57)
--- NOTE | 2017-10-14 16:36 | EDM.PDOC ---
ED HPI GENERAL MEDICAL PROBLEM - General Chief Complaint: Skin Complaint Stated Complaint: BUMPS ALL OVER SKIN Time Seen by Provider: 10/14/17 15:17 Source of Information: Reports: Patient History Limitations: Reports: No Limitations - History of Present Illness INITIAL COMMENTS - FREE TEXT/NARRATIVE: HISTORY AND PHYSICAL: History of present illness: Patient is a 26-year-old female who presents to the emergency room with complaints of a rash to the entire body. She states last week she saw her primary care provider who prescribed diclofenac for some osteoarthritis to her bilateral knees. Since that time she has taken 2 doses of her diclofenac, both at separate intervals. She states the first time she took it she noticed a hive- like rash throughout her body. This had subsided over a day. She took a second dose of diclofenac and noticed the rash returned but was worse. Today while at work she started to feel hot and slightly dizzy. She denies any fever, chills, chest pain, shortness of breath. She denies any abdominal pain, nausea, vomiting, diarrhea or constipation. Review of systems: As per history of present illness and below otherwise all systems reviewed and negative. Past medical history: As per history of present illness and as reviewed below otherwise noncontributory. Surgical history: As per history of present illness and as reviewed below otherwise noncontributory. Social history: No reported history of drug or alcohol abuse. Family history: As per history of present illness and as reviewed below otherwise noncontributory. Physical exam: General: Developed and well-nourished 26-year-old female. Alert and oriented. Nontoxic appearing and in no acute distress. HEENT: Atraumatic, normocephalic, pupils equal and reactive bilaterally, negative for conjunctival pallor or scleral icterus, mucous membranes moist, throat clear, neck supple, nontender, trachea midline. No drooling or trismus noted. No meningeal signs Lungs: Clear to auscultation, breath sounds equal bilaterally, chest nontender. Heart: S1S2, regular rate and rhythm without overt murmur Abdomen: Soft, nondistended, nontender. Negative for masses or hepatosplenomegaly. Negative for costovertebral tenderness. Pelvis: Stable nontender. Genitourinary: Deferred. Rectal: Deferred. Skin: Intact, warm, dry. No lesions or rashes noted. Extremities: Atraumatic, negative for cords or calf pain. Neurovascular unremarkable. Neuro: Awake, alert, oriented. Cranial nerves II through XII unremarkable. Cerebellum unremarkable. Motor and sensory unremarkable throughout. Exam nonfocal. Notes: Patient has no respiratory involvement. The rash with Solu-Medrol IM while here. Prescription for Medrol Dosepak. Encouraged her to stop using the diclofenac and follow up with her primary care provider for further management of her osteoarthritis pain. Did offer her a EpiPen for home use which she declines. She voices understanding and is agreeable to plan of care. She denies any further questions at this time. Diagnostics: [] Therapeutics: Solu-Medrol Impression: Allergic reaction Plan: 1. Please stop the Diclofenac prescription. 2. Take the medrol dosepak as prescribed. 3. Take [id number] Claritin or Benadryl (h-1 maximiliano) WITH over-the- counter Zantac (h-2 maximiliano) for the next 5-7 days. 4. Comfort cares: May use Calamine lotion as needed. Avoid hot showers. 5. Please follow-up with your primary care provider in the next couple days. Return to the ED as needed and as discussed. Definitive disposition and diagnosis as appropriate pending reevaluation and review of above. 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: Reports: Endometriosis Musculoskeletal History: Reports: Osteoarthritis Other Musculoskeletal History: bilateral knees Endocrine/Metabolic History: Reports: Hypothyroidism - Past Surgical History Female Surgical History: Reports: Cystectomy, Salpingo-Oophorectomy Other Female Surgeries/Procedures: Right salpingo-oophorectomy Social & Family History - Family History Family Medical History: Noncontributory - Tobacco Use Smoking Status *Q: Former Smoker Years of Tobacco use: 12 Packs/Tins Daily: 0.5 Used Tobacco, but Quit: Yes Month/Year Tobacco Last Used: 10/2016 - Caffeine Use Caffeine Use: Reports: Coffee, Energy Drinks, Soda, Tea Caffeine Use Comment: 3/4 cup - Alcohol Use Days Per Week of Alcohol Use: 2 Number of Drinks Per Day: 5 Total Drinks Per Week: 10 - Recreational Drug Use Recreational Drug Use: No ED ROS GENERAL - Review of Systems Review Of Systems: ROS reveals no pertinent complaints other than HPI. ED EXAM, SKIN/RASH Exam: See Below (See dictation) Course - Vital Signs Last Recorded V/S: Last Vital Signs Temp 97.8 F 10/14/17 15:29 Pulse 87 10/14/17 15:29 Resp 16 10/14/17 15:29 BP 117/66 10/14/17 15:29 Pulse Ox 99 10/14/17 15:29 - Orders/Labs/Meds Meds: Medications Discontinued Medications Generic Name Dose Route Start Last Admin Trade Name Freq PRN Reason Stop Dose Admin Methylprednisolone Sodium Succinate 125 mg 10/14/17 15:57 Solu-Medrol IVPUSH 10/14/17 15:58 ONETIME ONE Methylprednisolone Sodium Succinate 125 mg 10/14/17 16:09 Solu-Medrol IM 10/14/17 16:10 ONETIME ONE Departure - Departure Time of Disposition: 16:36 Disposition: Home, Self-Care 01 Clinical Impression: Allergic reaction caused by a drug Qualifiers: Encounter type: initial encounter Qualified Code(s): T78.40XA - Allergy, unspecified, initial encounter - Discharge Information Instructions: Drug Rash Referrals: Anna Burger AUTOMOTIVE TIRE TECHNICIAN [Primary Care Provider] - Forms: ED Department Discharge Additional Instructions: The following information is given to patients seen in the emergency department who are being discharged to home. This information is to outline your options for follow-up care. We provide all patients seen in our emergency department with a follow-up referral. The need for follow-up, as well as the timing and circumstances, are variable depending upon the specifics of your emergency department visit. If you don't have a primary care physician on staff, we will provide you with a referral. We always advise you to contact your personal physician following an emergency department visit to inform them of the circumstance of the visit and for follow-up with them and/or the need for any referrals to a consulting specialist. The emergency department will also refer you to a specialist when appropriate. This referral assures that you have the opportunity for follow-up care with a specialist. All of these measure are taken in an effort to provide you with optimal care, which includes your follow-up. Under all circumstances we always encourage you to contact your private physician who remains a resource for coordinating your care. When calling for follow-up care, please make the office aware that this follow-up is from your recent emergency room visit. If for any reason you are refused follow-up, please contact the [facility] Emergency Department at and asked to speak to the emergency department charge nurse. [facility] [address] [place] [id number] [id number] 1. Please stop the Diclofenac prescription. 2. Take the medrol dosepak as prescribed. 3. Take [id number] Claritin or Benadryl (h-1 maximiliano) WITH over-the- counter Zantac (h-2 maximiliano) for the next 5-7 days. 4. Comfort cares: May use Calamine lotion as needed. Avoid hot showers. 5. Please follow-up with your primary care provider in the next couple days. Return to the ED as needed and as discussed.
[2017-10-14] MEDS: methylPREDNISolone Sodium Succinate 125 MG/2 ML SDV IM ONE (17:59)
== END 2017-10-14 17:10 | disposition home or self-care (01) ==
LOC: MW.ED 15:14
DX: L27.0 Generalized skin eruption due to drugs and medicaments taken internally (principal); T39.395A Adverse effect of other nonsteroidal anti-inflammatory drugs [NSAID], initial encounter; R42 Dizziness and giddiness; M17.0 Bilateral primary osteoarthritis of knee; E03.9 Hypothyroidism, unspecified; Z87.891 Personal history of nicotine dependence; Z88.1 Allergy status to other antibiotic agents; Z91.09 Other allergy status, other than to drugs and biological substances
CPT/HCPCS: 96372; 99283; J2930; 99282

== ENCOUNTER 2018-09-26 18:47 | Emergency (ER) | payer OTHER ==
[2018-09-26] MEDS ORDERED: Sodium Chloride 0.9% 10 ML Syringe FLUSH PRN (18:54)
[2018-09-26] MEDS ORDERED: Sodium Chloride 0.9% 2.5 ML Syringe FLUSH PRN (18:54)
--- NOTE | 2018-09-26 19:05 | EDM.PDOC ---
ED HPI GENERAL MEDICAL PROBLEM - General Chief Complaint: Syncope Stated Complaint: spoke to nurse Time Seen by Provider: 09/26/18 19:02 Source of Information: Reports: Patient History Limitations: Reports: No Limitations - History of Present Illness INITIAL COMMENTS - FREE TEXT/NARRATIVE: HISTORY AND PHYSICAL: History of present illness: Patient is a 27-year-old female here with complaint of syncope that occurred 30 minutes prior to arrival to the ED. She states she was at home when she slammed her thumb in a door, she started feeling nauseous and light headed so she sat down on the couch. She states she then blacked out and fell forward off the couch on to the hard wood floor hitting the right side of her head. Her mom was with her and states she was out for about 1-2 minutes before she came to. There was no seizure like activity. She denies headache, vomiting, chest pain, shortness of breath, abdominal pain, urinary or bowel symptoms. Review of systems: As per history of present illness and below otherwise all systems reviewed and negative. Past medical history: As per history of present illness and as reviewed below otherwise noncontributory. Surgical history: As per history of present illness and as reviewed below otherwise noncontributory. Social history: No reported history of drug or alcohol abuse. Family history: As per history of present illness and as reviewed below otherwise noncontributory. Physical exam: General: Patient sitting comfortably in no acute distress and nontoxic appearing HEENT: Abrasion to her right cheek noted. Atraumatic, normocephalic, pupils reactive, negative for conjunctival pallor or scleral icterus, mucous membranes moist, throat clear, neck supple, nontender, trachea midline. No meningeal signs. Lungs: Clear to auscultation, breath sounds equal bilaterally, chest nontender. Heart: S1S2, regular, negative for clicks, rubs, or overt murmur. Abdomen: Soft, nondistended, nontender. Negative for masses or hepatosplenomegaly. Negative for costovertebral tenderness. No rigidity, rebound , guarding. Pelvis: Stable nontender. Genitourinary: Deferred. Rectal: Deferred. Extremities: Atraumatic, negative for cords or calf pain. Neurovascular unremarkable. Neuro: Awake, alert, oriented. Cranial nerves II through XII unremarkable. Cerebellum unremarkable. Motor and sensory unremarkable throughout. Exam nonfocal. Notes: Diagnostics: EKG, CBC, CMP, troponin, UA, urine hcg, head CT Therapeutics: None Prescriptions: Macrobid Diflucan Impression: Vasovagal syncope UTI Yeast vaginitis Plan: 1. Take medications as instructed 2. Follow up with primary care provider 3. Return to ED as needed as discussed Definitive disposition and diagnosis as appropriate pending reevaluation and review of above. 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 Musculoskeletal History: Reports: Osteoarthritis Other Musculoskeletal History: bilateral knees Psychiatric History: Reports: Anxiety Endocrine/Metabolic History: Reports: Hypothyroidism - Past Surgical History Female Surgical History: Reports: Cystectomy, Salpingo-Oophorectomy Other Female Surgeries/Procedures: Right salpingo-oophorectomy Social & Family History - Family History Family Medical History: Noncontributory - Tobacco Use Smoking Status *Q: Current Every Day Smoker Years of Tobacco use: 12 Packs/Tins Daily: 0.5 Second Hand Smoke Exposure: Yes - Caffeine Use Caffeine Use: Reports: Coffee, Energy Drinks, Soda, Tea Caffeine Use Comment: 3/4 cup - Recreational Drug Use Recreational Drug Use: No ED ROS GENERAL - Review of Systems Review Of Systems: ROS reveals no pertinent complaints other than HPI. - Physical Exam Exam: See Below (see dictation) Course - Vital Signs Last Recorded V/S: Last Vital Signs Temp 98 F 09/26/18 18:54 Pulse 98 09/26/18 18:54 Resp 20 09/26/18 18:54 BP 109/82 09/26/18 18:54 Pulse Ox 99 09/26/18 18:54 - Orders/Labs/Meds Orders: Active Orders 24 hr Category Date Time Status EKG Documentation Completion [RC] STAT Care 09/26/18 18:54 Active CULTURE URINE [RM] Stat Lab 09/26/18 19:02 Received Sodium Chloride 0.9% [Saline Flush] Med 09/26/18 18:54 Active 10 ml FLUSH ASDIRECTED PRN Sodium Chloride 0.9% [Saline Flush] Med 09/26/18 18:54 Active 2.5 ml FLUSH ASDIRECTED PRN Saline Lock Insert [OM.PC] Stat Oth 09/26/18 18:53 Ordered Medication Orders Sodium Chloride (Saline Flush) 10 ml FLUSH ASDIRECTED PRN PRN Reason: Keep Vein Open Sodium Chloride (Saline Flush) 2.5 ml FLUSH ASDIRECTED PRN PRN Reason: Keep Vein Open Labs: Laboratory Tests 09/26/18 09/26/18 09/26/18 Range/Units 19:02 19:02 19:11 WBC 5.99 (4.0-11.0) K/uL RBC 4.35 (4.30-5.90) M/uL Hgb 14.0 (12.0-16.0) g/dL Hct 42.3 (36.0-46.0) % MCV 97.2 (80.0-98.0) fL MCH 32.2 H (27.0-32.0) pg MCHC 33.1 (31.0-37.0) g/dL RDW Std Deviation 45.1 (28.0-62.0) fl RDW Coeff of Bill 13 (11.0-15.0) % Plt Count 255 (150-400) K/uL MPV 10.80 (7.40-12.00) fL Neut % (Auto) 54.2 (48.0-80.0) % Lymph % (Auto) 37.6 (16.0-40.0) % Cassia % (Auto) 7.3 (0.0-15.0) % Eos % (Auto) 0.7 (0.0-7.0) % Baso % (Auto) 0.2 (0.0-1.5) % Neut # (Auto) 3.3 (1.4-5.7) K/uL Lymph # (Auto) 2.3 (0.6-2.4) K/uL Cassia # (Auto) 0.4 (0.0-0.8) K/uL Eos # (Auto) 0.0 (0.0-0.7) K/uL Baso # (Auto) 0.0 (0.0-0.1) K/uL Nucleated RBC % 0.0 /100WBC Nucleated RBCs # 0 K/uL Sodium (136-145) mmol/L Potassium (3.5-5.1) mmol/L Chloride (98-107) mmol/L Carbon Dioxide (21.0-32.0) mmol/L BUN (7.0-18.0) mg/dL Creatinine (0.6-1.0) mg/dL Est Cr Clr Drug Dosing mL/min Estimated GFR (MDRD) ml/min Glucose (74-106) mg/dL Calcium (8.5-10.1) mg/dL Total Bilirubin (0.2-1.0) mg/dL AST (15-37) IU/L ALT (14-63) IU/L Alkaline Phosphatase (46-116) U/L Troponin I (0.000-0.056) ng/mL Total Protein (6.4-8.2) g/dL Albumin (3.4-5.0) g/dL Globulin (2.6-4.0) g/dL Albumin/Globulin Ratio (0.9-1.6) Urine Color YELLOW Urine Appearance HAZY Urine pH 7.0 (5.0-8.0) Ur Specific [place] 1.020 (1.001-1.035) Urine Protein TRACE H (NEGATIVE) mg/dL Urine Glucose (UA) NEGATIVE (NEGATIVE) mg/dL Urine Ketones NEGATIVE (NEGATIVE) mg/dL Urine Occult Blood LARGE H (NEGATIVE) Urine Nitrite NEGATIVE (NEGATIVE) Urine Bilirubin NEGATIVE (NEGATIVE) Urine Urobilinogen 1.0 (<2.0) EU/dL Ur Leukocyte Esterase SMALL H (NEGATIVE) Urine RBC 3-5 (0-2/HPF) Urine WBC 10-12 (0-5/HPF) Ur Epithelial Cells MODERATE (NONE-FEW) Urine Bacteria 1+ H (NEGATIVE) Urine Yeast FEW Urine HCG, Qual NEGATIVE (NEGATIVE) 09/26/18 Range/Units 19:11 WBC (4.0-11.0) K/uL RBC (4.30-5.90) M/uL Hgb (12.0-16.0) g/dL Hct (36.0-46.0) % MCV (80.0-98.0) fL MCH (27.0-32.0) pg MCHC (31.0-37.0) g/dL RDW Std Deviation (28.0-62.0) fl RDW Coeff of Bill (11.0-15.0) % Plt Count (150-400) K/uL MPV (7.40-12.00) fL Neut % (Auto) (48.0-80.0) % Lymph % (Auto) (16.0-40.0) % Cassia % (Auto) (0.0-15.0) % Eos % (Auto) (0.0-7.0) % Baso % (Auto) (0.0-1.5) % Neut # (Auto) (1.4-5.7) K/uL Lymph # (Auto) (0.6-2.4) K/uL Cassia # (Auto) (0.0-0.8) K/uL Eos # (Auto) (0.0-0.7) K/uL Baso # (Auto) (0.0-0.1) K/uL Nucleated RBC % /100WBC Nucleated RBCs # K/uL Sodium 141 (136-145) mmol/L Potassium 3.7 (3.5-5.1) mmol/L Chloride 103 (98-107) mmol/L Carbon Dioxide 27.4 (21.0-32.0) mmol/L BUN 10 (7.0-18.0) mg/dL Creatinine 0.8 (0.6-1.0) mg/dL Est Cr Clr Drug Dosing 92.83 mL/min Estimated GFR (MDRD) > 60.0 ml/min Glucose 105 (74-106) mg/dL Calcium 9.1 (8.5-10.1) mg/dL Total Bilirubin 0.2 (0.2-1.0) mg/dL AST 10 L (15-37) IU/L ALT 15 (14-63) IU/L Alkaline Phosphatase 78 (46-116) U/L Troponin I < 0.050 (0.000-0.056) ng/mL Total Protein 8.5 H (6.4-8.2) g/dL Albumin 4.5 (3.4-5.0) g/dL Globulin 4.0 (2.6-4.0) g/dL Albumin/Globulin Ratio 1.1 (0.9-1.6) Urine Color Urine Appearance Urine pH (5.0-8.0) Ur Specific [place] (1.001-1.035) Urine Protein (NEGATIVE) mg/dL Urine Glucose (UA) (NEGATIVE) mg/dL Urine Ketones (NEGATIVE) mg/dL Urine Occult Blood (NEGATIVE) Urine Nitrite (NEGATIVE) Urine Bilirubin (NEGATIVE) Urine Urobilinogen (<2.0) EU/dL Ur Leukocyte Esterase (NEGATIVE) Urine RBC (0-2/HPF) Urine WBC (0-5/HPF) Ur Epithelial Cells (NONE-FEW) Urine Bacteria (NEGATIVE) Urine Yeast Urine HCG, Qual (NEGATIVE) Meds: Medications Generic Name Dose Route Start Last Admin Trade Name Freq PRN Reason Stop Dose Admin Sodium Chloride 10 ml 09/26/18 18:54 Saline Flush FLUSH ASDIRECTED PRN Keep Vein Open Sodium Chloride 2.5 ml 09/26/18 18:54 Saline Flush FLUSH ASDIRECTED PRN Keep Vein Open Departure - Departure Time of Disposition: 20:30 Disposition: Home, Self-Care 01 Condition: Good Clinical Impression: Vasovagal syncope, UTI (urinary tract infection), Yeast vaginitis - Discharge Information Referrals: PCP,Unknown [Primary Care Provider] - Forms: ED Department Discharge Additional Instructions: The following information is given to patients seen in the emergency department who are being discharged to home. This information is to outline your options for follow-up care. We provide all patients seen in our emergency department with a follow-up referral. The need for follow-up, as well as the timing and circumstances, are variable depending upon the specifics of your emergency department visit. If you don't have a primary care physician on staff, we will provide you with a referral. We always advise you to contact your personal physician following an emergency department visit to inform them of the circumstance of the visit and for follow-up with them and/or the need for any referrals to a consulting specialist. The emergency department will also refer you to a specialist when appropriate. This referral assures that you have the opportunity for follow-up care with a specialist. All of these measure are taken in an effort to provide you with optimal care, which includes your follow-up. Under all circumstances we always encourage you to contact your private physician who remains a resource for coordinating your care. When calling for follow-up care, please make the office aware that this follow-up is from your recent emergency room visit. If for any reason you are refused follow-up, please contact the [facility] Emergency Department at and asked to speak to the emergency department charge nurse. [address] [address] 1. Take medications as instructed 2. Follow up with primary care provider 3. Return to ED as needed as discussed - My Orders Last 24 Hours: My Active Orders 09/26/18 18:53 Saline Lock Insert [OM.PC] Stat 09/26/18 18:54 EKG Documentation Completion [RC] STAT Sodium Chloride 0.9% [Saline Flush] 10 ml FLUSH ASDIRECTED PRN Sodium Chloride 0.9% [Saline Flush] 2.5 ml FLUSH ASDIRECTED PRN 09/26/18 19:02 CULTURE URINE [RM] Stat - Assessment/Plan Last 24 Hours: My Active Orders 09/26/18 18:53 Saline Lock Insert [OM.PC] Stat 09/26/18 18:54 EKG Documentation Completion [RC] STAT Sodium Chloride 0.9% [Saline Flush] 10 ml FLUSH ASDIRECTED PRN Sodium Chloride 0.9% [Saline Flush] 2.5 ml FLUSH ASDIRECTED PRN 09/26/18 19:02 CULTURE URINE [RM] Stat
[2018-09-26 20:01] LABS: CHLORIDE,CL 103 mmol/L (98-107); SODIUM,NA 141 mmol/L (136-145)
--- NOTE | 2018-09-26 20:21 | CT ---
Indication: Pain following fall. Technique: Multiple contiguous axial images were obtained from the skullbase to the vertex without intravenous contrast enhancement. Please note that all CT scans at this facility use dose modulation, iterative reconstruction, and/or weight-based dosing when appropriate to reduce radiation dose to as low as reasonably achievable. Comparison: None Findings: The ventricles are symmetric and normal in size and morphology. The basal cisterns are widely patent. No intra-axial or extra-axial hemorrhage is identified. No mass, mass effect or midline shift is seen. The bony calvarium is intact. The visualized paranasal sinuses and mastoid air cells are clear. Impression: No acute intracranial process. Please note that all CT scans at this facility use dose modulation, iterative reconstruction, and/or weight-based dosing when appropriate to reduce radiation dose to as low as reasonably achievable. Dictated by Tayla Marcelo MD @ Sep 26 2018 8:18PM Signed by Dr. Tayla Marcelo @ Sep 26 2018 8:19PM
[2018-09-27 02:55] VITALS: BP 105/68
== END 2018-09-26 21:00 | disposition home or self-care (01) ==
LOC: MW.ED 18:47
DX: R55 Syncope and collapse (principal); B37.3 Candidiasis of vulva and vagina; N39.0 Urinary tract infection, site not specified; E03.9 Hypothyroidism, unspecified; F17.210 Nicotine dependence, cigarettes, uncomplicated; Z88.1 Allergy status to other antibiotic agents; Z88.8 Allergy status to other drugs, medicaments and biological substances; Z79.899 Other long term (current) drug therapy
CPT/HCPCS: 36415; 70450; 70450-26; 80053; 81001; 81025; 84484; 85025; 87086; 93005; 99284-25

== ENCOUNTER 2021-03-17 13:52 | Emergency (ER) | payer OTHER ==
[2021-03-17 14:29] VITALS: PULSE 77
--- NOTE | 2021-03-17 16:24 | CR ---
Indication: Tripped and a pothole. Technique: Three views of the right ankle. Comparison: None Findings: Ankle mortise is intact and the talar dome is intact. No fracture or subluxation is identified. Soft tissue swelling is identified laterally. Impression: Mild soft tissue swelling laterally Dictated by Tayla Marcelo MD @ 03/17/2021 4:22:37 PM (Electronically Signed)
--- NOTE | 2021-03-17 16:26 | CR ---
Indication: Tripped Technique: Three-views of the right foot Comparison: No comparison Findings: Normal alignment. No acute fractures or acute osseous abnormalities Impression: Negative study. Dictated by Chel De La Paz MD @ 03/17/2021 4:25:19 PM (Electronically Signed)
--- NOTE | 2021-03-17 16:31 | EDM.PDOC ---
ED HPI GENERAL MEDICAL PROBLEM - General Chief Complaint: Lower Extremity Injury/Pain Stated Complaint: RIGHT YASIR SPRANG Time Seen by Provider: 03/17/21 14:35 - History of Present Illness INITIAL COMMENTS - FREE TEXT/NARRATIVE: CHIEF COMPLAINT(S): I rolled my ankle last night HISTORY OF PRESENT ILLNESS: This is a 30-year-old woman without any significant past medical history who comes to the emergency department with a chief complaint "I rolled my ankle last night." The patient states that she was walking and stepped into a pothole causing her ankle to roll. She states that she has been experiencing achy pain which is located on the right lateral side of her ankle that she rates as 8 out of 10. She states that she took ibuprofen without any relief and any movement seems to cause the pain. She denies any numbness or tingling. She denies any radiation of the pain. She states that she denies any falls. REVIEW OF SYSTEMS: Skin:Denies a rash MSK: Positive for right ankle pain Neurological: Denies numbness, tingling, weakness PAST MEDICAL HISTORY: As per history of present illness and as reviewed below otherwise noncontributory. SURGICAL HISTORY: As per history of present illness and as reviewed below otherwise noncontributory. SOCIAL HISTORY: As per history of present illness and as reviewed below otherwise noncontributory. FAMILY HISTORY: As per history of present illness and as reviewed below otherwise noncontributory. EXAMINATION OF ORGAN SYSTEMS/BODY AREAS: Constitutional: , heart rate 70 saturation of 98% on room air. Temperature 35.6 General: Well-appearing woman who is in no acute distress psychiatric: Appropriate mood and affect. Eyes: No scleral icterus or conjunctival erythema Cardiovascular: Regular, rate, and rhythm. No gallops, murmurs, or rubs. Bilateral upper extremity and lower extremity pulses symmetric and intact. No peripheral edema. No JVD. Respiratory: Lungs clear to auscultation bilaterally. No wheezes, rales, or rhonchi. Musculoskeletal: Normal range of motion. There is some right lateral ankle swelling. There is tenderness to palpation along this lateral malleolar area. No medial malleolar tenderness and no base of the fifth tarsal tenderness. Skin: No lesions or abrasions. No ecchymosis. Neurological: Alert, GCS 15 distal sensation is intact. MEDICAL DECISION MAKING AND COURSE IN THE ED WITH INTERPRETATION/REVIEW OF CHERYL GNOSTIC STUDIES: This is a 30-year-old woman without any significant past medical history presents to the emergency department approximate 24 hours after a ankle injury with some lateral malleolar tenderness. At this time given the location of the pain will obtain an ankle and foot x-ray. We will provide the patient Toradol for pain. Do not believe any other labs or imaging are indicated. The radiological images were viewed by myself along with reading the report from the radiologist. Right ankle x-ray does not reveal any fracture or dislocation. There is mild soft tissue swelling laterally. Right foot x-ray reveal any fracture or dislocation. After imaging I did discuss the results with the patient. I discussed that at home. She was given strict return precautions DISPOSITION: The patient was discharged home in stable condition. The patient will follow up with primary care physician in 3- 5 days CONDITION: fair PROCEDURES: None FINAL IMPRESSION(S)/DIAGNOSES: 1. acute right ankle sprain Sanchez Loyd M.D. 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 Musculoskeletal History: Reports: Osteoarthritis Other Musculoskeletal History: bilateral knees Psychiatric History: Reports: Anxiety Endocrine/Metabolic History: Reports: Hypothyroidism - Past Surgical History Female Surgical History: Reports: Cystectomy, Salpingo-Oophorectomy Other Female Surgeries/Procedures: Right salpingo-oophorectomy Social & Family History - Family History Family Medical History: No Pertinent Family History - Tobacco Use Tobacco Use Status *Q: Current Every Day Tobacco User Years of Tobacco use: 15 Packs/Tins Daily: 0.5 - Caffeine Use Caffeine Use: Reports: None Caffeine Use Comment: 3/4 cup - Recreational Drug Use Recreational Drug Use: No Review of Systems - Review of Systems Review Of Systems: See Below ED EXAM, GENERAL - Physical Exam Exam: See Below Course - Vital Signs Last Recorded V/S: Last Vital Signs Temp 35.6 C L 03/17/21 14:26 Pulse 77 03/17/21 16:51 Resp 17 03/17/21 16:51 BP 111/72 03/17/21 16:51 Pulse Ox 98 03/17/21 16:51 Departure - Departure Time of Disposition: 16:30 Disposition: Home, Self-Care 01 Condition: Fair Clinical Impression: Ankle sprain - Discharge Information *PRESCRIPTION DRUG MONITORING PROGRAM REVIEWED*: No *COPY OF PRESCRIPTION DRUG MONITORING REPORT IN PATIENT JEREMI: No Instructions: Ankle Sprain, [place] Referrals: Anna Burger LEAD DATABASE ADMINISTRATOR [Primary Care Provider] - Forms: ED Department Discharge Additional Instructions: You were evaluated today on an emergent basis. At this time your x-rays did not reveal any fractures. As discussed this is from an ankle sprain. I recommend that you ice the area, use Tylenol and Motrin and if needed place an Marin bandage. If continued pain and swelling I would like you to follow-up with orthopedics for reevaluation at the number below. Please use: Tylenol 500-1000mg every 6 hours (DO NOT TAKE MORE THAN 4000mg in 1 day) Ibuprofen 400mg every 6 hours (Take with food as it can cause ulcers, GI upset) Example schedule: 8:00 AM (Tylenol 500-1000mg) 11:00 AM (Ibuprofen 400mg) 2:00 PM (Tylenol 500-1000mg) 5:00 PM (Ibuprofen 400mg) In addition to Tylenol and Motrin you may use over the counter creams such as Voltaren Cream or Lidocaine Cream (Lidoderm) as needed 4 times a day for symptomatic relief. Ice the area 20 minutes 4 times per day [facility] [address], [address] [place] [address] The patient is informed of any results of their evaluation and diagnostic workup and all questions are answered. They are given discharge instructions and return precautions. The patient is stable for discharge. The patient states they understand and agree with the plan and that they will return if their symptoms get worse or if they have any new concerns. The following information is given to patients seen in the emergency department who are being discharged to home. This information is to outline your options for follow-up care. We provide all patients seen in our emergency department with a follow-up referral. The need for follow-up, as well as the timing and circumstances, are variable depending upon the specifics of your emergency department visit. If you don't have a primary care physician on staff, we will provide you with a referral. We always advise you to contact your personal physician following an emergency department visit to inform them of the circumstance of the visit and for follow-up with them and/or the need for any referrals to a consulting specialist. The emergency department will also refer you to a specialist when appropriate. This referral assures that you have the opportunity for follow-up care with a specialist. All of these measure are taken in an effort to provide you with optimal care, which includes your follow-up. Under all circumstances we always encourage you to contact your private physician who remains a resource for coordinating your care. When calling for follow-up care, please make the office aware that this follow-up is from your recent emergency room visit. If for any reason you are refused follow-up, please contact the [facility] Emergency Department at and asked to speak to the emergency department charge nurse.
[2021-03-17 16:52] VITALS: BP 111/72
== END 2021-03-17 16:51 | disposition home or self-care (01) ==
LOC: MW.ED 13:52
DX: S93.401A Sprain of unspecified ligament of right ankle, initial encounter (principal); E03.9 Hypothyroidism, unspecified; Z88.0 Allergy status to penicillin; Z91.018 Allergy to other foods; Z91.09 Other allergy status, other than to drugs and biological substances; Z72.0 Tobacco use; Z79.899 Other long term (current) drug therapy; X50.1XXA Overexertion from prolonged static or awkward postures, initial encounter
CPT/HCPCS: 73610-26-RT; 73610-RT; 73630-26-RT; 73630-RT; 99283-25

== ENCOUNTER 2024-03-11 08:28 | Emergency (ER) | payer SELFPAY ==
[2024-03-11 09:06] LABS: BASOPHILS ABSOLUTE AUTO 0.04 K/uL (0.00-0.20); BASOPHILS PERCENT AUTO 0.4 % (0.0-1.0); EOSINOPHILS ABSOLUTE AUTO 0.13 K/uL (0.00-0.45); EOSINOPHILS PERCENT AUTO 1.4 % (0.0-6.0); HEMATOCRIT 42.7 % (37.0-47.0); HEMOGLOBIN 14.1 g/dL (12.0-16.0); IMMATURE GRAN ABSOLUTE AUTO 0.03 K/uL (0.00-0.05); IMMATURE GRAN PERCENT AUTO 0.3 % (0.0-0.4); LYMPHOCYTES ABSOLUTE AUTO 2.54 K/uL (1.00-4.80); LYMPHOCYTES PERCENT AUTO 27.9 % (24.0-44.0); MEAN CORPUSCULAR HEMOGLOBIN 31.8 pg (28.0-32.0); MEAN CORPUSCULAR VOLUME 96.4 fL (83.0-99.0); MONOCYTES ABSOLUTE AUTO 1.08 K/uL (0.00-0.80); MONOCYTES PERCENT AUTO 11.9 % (0.0-8.0); NEUTROPHILS ABSOLUTE AUTO 5.28 K/uL (1.80-7.70); NEUTROPHILS PERCENT AUTO 58.1 % (41.0-71.0); PLATELET COUNT,PLT 304 K/uL (150-400); RED BLOOD CELL COUNT 4.43 M/uL (4.10-5.30)
[2024-03-11 09:13] LABS: BILIRUBIN,URINE NEGATIVE (NEGATIVE); COLOR,URINE YELLOW; GLUCOSE,URINE NEGATIVE (NEGATIVE); KETONES,URINE NEGATIVE (NEGATIVE); LEUKOCYTE ESTERASE,URINE TRACE (NEGATIVE); NITRITE,URINE NEGATIVE (NEGATIVE); OCCULT BLOOD,URINE LARGE (NEGATIVE); PROTEIN,URINE NEGATIVE (NEGATIVE); UROBILINOGEN,URINE 0.2 EU/dL (<2.0)
[2024-03-11 09:17] LABS: APPEARANCE,URINE SLT CLOUDY
[2024-03-11 09:20] LABS: BACTERIA,URINE FEW (NEGATIVE); EPITHELIAL CELLS,URINE FEW (NONE-FEW); WBC,URINE 0-3 (0-5/HPF)
[2024-03-11 11:05] VITALS: BP 120/72; PULSE 77
== END 2024-03-11 11:04 | disposition home or self-care (01) ==
LOC: MW.ED 08:28
DX: O20.0 Threatened abortion (principal); O99.281 Endocrine, nutritional and metabolic diseases complicating pregnancy, first trimester; O99.331 Smoking (tobacco) complicating pregnancy, first trimester; E03.9 Hypothyroidism, unspecified; F17.210 Nicotine dependence, cigarettes, uncomplicated; Z3A.09 9 weeks gestation of pregnancy; Z79.890 Hormone replacement therapy; Z79.899 Other long term (current) drug therapy; Z88.0 Allergy status to penicillin; Z88.8 Allergy status to other drugs, medicaments and biological substances; Z75.8 Other problems related to medical facilities and other health care
CPT/HCPCS: 36415; 76801; 76801-26; 81001; 84702; 85025; 86900; 86901; 99284